=== PATIENT | female | born 1985 | race African-American/Black ===

== ENCOUNTER 2020-09-02 21:51 | Emergency (ER) | payer SELFPAY ==
[~2020-09-02 21:51] MED LIST: Iopamidol-370 76% 500 ML 1 ML ONE
[2020-09-02] MEDS ORDERED: Ketorolac Tromethamine 30 MG/ML VIAL ONE (22:44)
[2020-09-02] MEDS ORDERED: Aspirin Chewable 81 MG TAB ONE (22:44)
[2020-09-02] MEDS ORDERED: Ondansetron PF 4 MG/2 ML Vial ONE (22:44)
[2020-09-02] MEDS ORDERED: Morphine 4 MG/ML VIAL ONE (22:44)
[2020-09-02 22:51] LABS: #Basophils 0.1 thou/uL (0.0-0.2); #Eosinphils 0.3 thou/uL (0.0-0.7); #Lymphocytes 3.4 thou/uL (1.20-3.40); #Monocytes 0.9 thou/uL (0.11-0.59); #Neutrophils 7.8 thou/uL (1.40-6.50); %Basophils 0.5 % (0.0-1.0); %Eosinophils 2.3 % (0.0-10.0); %Lymphocytes 27.3 % (21.0-51.0); %Monocytes 6.9 % (0.0-10.0); %Neutrophils 63.1 % (42.0-75.0); Hemoglobin 10.3 g/dL (12.0-16.0); Mean Corpuscular HGB CONC 31.4 g/dL (32.0-36.0); Mean Corpuscular Hemoglobin 24.5 pg (27.0-31.0); Mean Platelet Volume 9.4 fL (7.4-10.4); Platelet Count 337 thou/uL (130-400); RBC Distribution Width 16.7 % (11.5-14.5); White Blood Cell (WBC) Count 12.4 thou/uL (4.8-10.8)
[2020-09-02 23:01] LABS: ALT (SGPT) 9 U/L (8-55); AST (SGOT) 10 U/L (5-34); Albumin 3.5 g/dL (3.5-5.0); Alkaline Phosphatase 75 U/L (40-110); Anion Gap 14 mmol/L (10-20); BUN (Urea Nitrogen) 10 mg/dL (7.0-18.7); Bilirubin, Total Less than 0.2 mg/dL (0.2-1.2); Calc. Creatinine Clearance 0 mL/min (70-130); Calcium 8.5 mg/dL (7.8-10.44); Carbon Dioxide 23 mmol/L (22-29); Chloride 105 mmol/L (98-107); Glucose 102 mg/dL (70-105); Protein, Total 7.5 g/dL (6.0-8.3); Sodium 139 mmol/L (136-145)
[2020-09-03] MEDS ORDERED: Lorazepam 2 MG/ML VIAL ONE (00:06)
[2020-09-03] MEDS ORDERED: hydrOXYzine 25 MG TAB ONE (02:04)
--- NOTE | 2020-09-03 06:26 | RAD ---
SINGLE VIEW CHEST: Date: 09/02/2020 COMPARISON: None. HISTORY: Chest pain. FINDINGS: Single view of the chest shows normal sized cardiomediastinal silhouette. There is a questionable inf iltrate in the right lower lobe. No pleural effusion is seen. The bones are unremarkable. IMPRESSION: Questionable right lower lobe infiltrate. POS: EAA
--- NOTE | 2020-09-03 07:47 | CT ---
PRELIMINARY REPORT/[facility]/EMERGENCY AFTER HOURS PROCEDURE EXAM: CTA Chest with Intravenous Contrast CLINICAL HISTORY: PT presenting with known PNA and dull ache left sided chest pain with radiculopathy to the left subsc apular and axilla. Pain started this morning upon waking and has persisted all day. +DDIMER TECHNIQUE: Axial CTA images of the chest with intravenous contrast. Three-dimensional MIP/volume rendered reform ations were performed. CONTRAST: With; ISOVUE 370,100mL COMPARISON: None provided. FINDINGS: PULMONARY ARTERIES There is slight suboptimal opacification noted of the pulmonary arterial tree. No definite filling de fect is seen within the visualized pulmonary arterial branches. AORTA No thoracic aortic aneurysm or dissection. LUNGS The lungs are clear. No pulmonary mass. No focal airspace consolidation. PLEURAL SPACES A minimal pericardial effusion is observed. HEART AND MEDIASTINUM No cardiomegaly. LYMPH NODES No lymphadenopathy. BONES No focal osseous abnormality or acute fracture. CHEST WALL AND UPPER ABDOMEN Bilateral axillary adenopathy is present. There is a lymph node on image 35 of series 3 within the ri ght axilla, demonstrating a short axis dimension of 1.3 cm. A left axillary lymph node on image 38 demonstrates a short axis dimension of 10 mm. A left axillary lymph node on image 22 demonstrates a s hort axis dimension of 11 mm. IMPRESSION: 1. Suboptimal opacification of the pulmonary arterial tree, though no definite findings of pulmonary embolus are observed. 2. Bilateral axillary adenopathy. 3. A minimal pericardial effusion. 4. No gross consolidation, effusion or pneumothorax identified. ELECTRONICALLY SIGNED BY: Vicente Gómez MD Sep 03, 2020 1:25:35 AM SOCIAL PSYCHOLOGIST This report is intended for review by the ordering physician only, in accordance of law. If you recei ve this report in error, please call [facility] at [phone]. FINAL REPORT Emergent after hours CT angiogram thorax with IV contrast and 3-D reconstructions HISTORY: Chest pain and elevated d-dimer. Patient complains of dull left-sided chest pain with radiation of pa in to left subscapular region and axilla. COMPARISON: None. IMPRESSION: 1. Suboptimal timing of the contrast bolus limiting opacification of the pulmonary arteries. No defin ite filling defects are seen in the central pulmonary arteries, but the degree of opacification of the segmental and subsegmental arteries precludes adequate evaluation of pulmonary arteries at these levels. 2. Thoracic aorta is not opacified but is normal in caliber. 3. Small pericardial effusion. 4. Subsegmental atelectasis in the right middle lobe and left lower lobe. 5. Bilateral axillary lymphadenopathy with mildly enlarged bilateral axillary lymph nodes. Largest ly mph node in each axilla measures 1.3 cm in short axis dimension. Findings are in agreement with preliminary report by [facility]. Transcribed Date/Time: 09/03/2020 8:22 AM
== END 2020-09-03 02:40 | disposition home or self-care (01) ==
LOC: ERS 21:51
DX: F41.9 Anxiety disorder, unspecified (principal); I10 Essential (primary) hypertension; R07.9 Chest pain, unspecified; F17.200 Nicotine dependence, unspecified, uncomplicated; Z87.01 Personal history of pneumonia (recurrent); Z79.899 Other long term (current) drug therapy
CPT/HCPCS: 36415; 71045; 71275; 80053; 84443; 84484; 85025; 85379; 93005; 94760; 96374; 96375; J1885; J2060; J2270; J2405; Q9967